=== PATIENT | female | born 1970 | race Caucasian/White ===

== ENCOUNTER 2021-08-07 12:20 | Emergency (ER) | payer MEDICAID, OTHER ==
[~2021-08-07] VITALS: Ht 149.9 cm; Wt 67.3 kg
[~2021-08-07 12:20] MED LIST: IMAT400T7 PO
[2021-08-07] MEDS ORDERED: MAG HYDROX/AL HYDROX/SIMETH ES 30 ML SUSPENSION UDCUP PO ONE (13:15)
[2021-08-07 13:36] LABS: HEMOGLOBIN 9.8 g/dL (12.0-16.0); MEAN CORPUSCULAR HEMOGLOBIN 32.5 pg (26.0-34.0); MEAN CORPUSCULAR HGB CONC 32.8 G/dL (31.0-37.0); MEAN CORPUSCULAR VOLUME 99 fL (80-100); PLATELET COUNT (AUTO) 517 K/uL (150-450); RED BLOOD CELL COUNT(AUTO) 3.02 MIL/uL (4.00-5.20); RED CELL DISTRIBUTION WIDTH 16.7 % (11.5-14.5)
[2021-08-07 13:54] LABS: ANION GAP 11 mmol/L (8-16); CALCIUM, TOTAL 9.2 mg/dL (8.8-10.5); CARBON DIOXIDE 30 mmol/L (22-29); CHLORIDE 100 mmol/L (98-107); CREATININE 0.82 mg/dL (0.60-1.30); GLOMERULAR FILTR. RATE CALC > 60 mL/min (>60); GLUCOSE,RANDOM 132 mg/dL (70-110); POTASSIUM 3.5 mmol/L (3.5-5.1); SODIUM SERUM 141 mmol/L (136-145); UREA NITROGEN, BLOOD 12 mg/dL (7-18)
[2021-08-07 13:59] LABS: ALANINE AMINOTRANSFERASE 56 U/L (12-78); ALKALINE PHOSPHATASE 111 U/L (46-116); ASPARTATE AMINOTRANSFERASE 50 U/L (15-37); BILIRUBIN,TOTAL 0.3 mg/dL (0.1-1.0); LIPASE 51 U/L (73-393)
[2021-08-07 14:08] LABS: BAND NEUTROPHILS % (MANUAL) 12 % (0-5); BLASTS, MANUAL % 1 (0-0); LYMPHOCYTES % (MANUAL) 3 % (22-44); METAMYELOCYTES % 14 % (0-0); MONOCYTES % (MANUAL) 3 % (2-9); MYELOCYTES % 10 % (0-0); SEGMENTED NEUTROPHILS % 57 % (40-70)
[2021-08-07] MEDS ORDERED: RINGERS SOLUTION,LACTATED 1,000 ML IV ONE (14:30)
[2021-08-07 14:59] VITALS: BP 131/89
== END 2021-08-07 15:19 | disposition home or self-care (01) ==
LOC: EMS 12:20
DX: R10.13 Epigastric pain (principal); C92.10 Chronic myeloid leukemia, BCR/ABL-positive, not having achieved remission
CPT/HCPCS: 36415; 76705; 80053; 83690; 84702; 85025; 99284; J7120

== ENCOUNTER 2021-11-29 15:59 | Emergency (ER) | payer OTHER ==
[~2021-11-29] VITALS: Ht 149.9 cm; Wt 59.1 kg
[2021-11-29] MEDS ORDERED: ASCI40TA PO (16:25)
[2021-11-29] MEDS ORDERED: MAG HYDROX/AL HYDROX/SIMETH 30 ML SUSP UDCUP PO ONE (16:30)
[2021-11-29] MEDS ORDERED: SODIUM CHLORIDE 0.9% 1,000 ML IV ONE (16:30)
[2021-11-29] MEDS ORDERED: KETOROLAC TROMETHAMINE 30 MG/ML VIAL IVP ONE (16:30)
[2021-11-29] MEDS ORDERED: FAMOTIDINE 10 MG/ML 2 ML VIAL IVP ONE (16:30)
[2021-11-29 16:38] LABS: HEMATOCRIT 22.4 % (36-46); MEAN CORPUSCULAR HEMOGLOBIN 30.8 pg (26.0-34.0); MEAN CORPUSCULAR HGB CONC 31.5 G/dL (31.0-37.0); MEAN CORPUSCULAR VOLUME 98 fL (80-100); RED BLOOD CELL COUNT(AUTO) 2.29 MIL/uL (4.00-5.20); RED CELL DISTRIBUTION WIDTH 20.2 % (11.5-14.5)
[2021-11-29 16:48] LABS: PLATELET COUNT (AUTO) 1244 K/uL (150-450)
[2021-11-29 16:49] LABS: ANION GAP 11 mmol/L (8-16); CALCIUM, TOTAL 9.8 mg/dL (8.8-10.5); CARBON DIOXIDE 24 mmol/L (22-29); CHLORIDE 103 mmol/L (98-107); CREATININE 0.85 mg/dL (0.60-1.30); GLOMERULAR FILTR. RATE CALC > 60 mL/min (>60); GLUCOSE,RANDOM 114 mg/dL (70-110); POTASSIUM 3.8 mmol/L (3.5-5.1); SODIUM SERUM 138 mmol/L (136-145); UREA NITROGEN, BLOOD 9 mg/dL (7-18)
[2021-11-29 17:00] LABS: ALANINE AMINOTRANSFERASE 30 U/L (12-78); ALBUMIN 3.7 g/dL (3.4-5.0); ALKALINE PHOSPHATASE 98 U/L (46-116); ASPARTATE AMINOTRANSFERASE 34 U/L (15-37); BILIRUBIN,TOTAL 0.5 mg/dL (0.1-1.0); HCG,QUANTITATIVE < 1 mIU/mL (0-6); LIPASE 61 U/L (73-393)
[2021-11-29 17:02] LABS: COVID AG,FIA SOURCE NASOPHARYNGEAL
[2021-11-29] MEDS ORDERED: SODIUM CHLORIDE 0.9% 100 ML ONE (17:50)
[2021-11-29] MEDS ORDERED: IOHEXOL 350 MG/ML 100 ML VIAL ONE (17:50)
[2021-11-29 19:09] LABS: BAND NEUTROPHILS % (MANUAL) 20 % (0-5); BASOPHILS % (MANUAL) 1 % (0-2); BLASTS, MANUAL % 10 (0-0); LYMPHOCYTES % (MANUAL) 2 % (22-44); METAMYELOCYTES % 25 % (0-0); MONOCYTES % (MANUAL) 3 % (2-9); MYELOCYTES % 5 % (0-0); SEGMENTED NEUTROPHILS % 34 % (40-70)
[2021-11-29 19:10] LABS: CORRECTED WHITE BLOOD COUNT 259.9 K/uL (4.5-11.0)
[2021-11-30 02:40] VITALS: BP 112/77
[2021-12-03 11:58] LABS: PATHOLOGY REVIEW, DIFF YES
== END 2021-11-30 03:01 | disposition home or self-care (01) ==
LOC: EMS 16:07
DX: R10.33 Periumbilical pain (principal); C95.90 Leukemia, unspecified not having achieved remission; Z20.822 Contact with and (suspected) exposure to COVID-19; Z87.19 Personal history of other diseases of the digestive system
CPT/HCPCS: 99285; 74177; 96374; 71045; 96361; 96375; 87426; 80053; 83690; 84702; 85025; 85045; 36415; J3490; J1885; Q9967; J7030; J7050